=== PATIENT | male | born 1955 | race Caucasian/White ===

== ENCOUNTER 2022-04-13 14:32 | Emergency (ER) | payer MEDICARE ==
[~2022-04-13] VITALS: Ht 175.3 cm; Wt 81.0 kg
--- NOTE | ~2022-04-13 | EKG ---
[facility] [address] [facility], [place] [address] Draft EK completed, results pending confirmation PATIENT NAME: BENJAMINADÁNMILENA Electrocardiogram DATE OF : 55 PHYSICIAN: PRELIMINARY REPORT #: [id number] REPORT IS CONFIDENTIAL AND NOT TO BE RELEASED WITHOUT AUTHORIZATION
--- NOTE | ~2022-04-13 | EKG ---
[facility] [address] [facility] [place], [place] [address] Draft EK completed, results pending confirmation PATIENT NAME: EDUARDOSylviaMILENA Electrocardiogram DATE OF : 55 PHYSICIAN: PRELIMINARY REPORT #: [id number] REPORT IS CONFIDENTIAL AND NOT TO BE RELEASED WITHOUT AUTHORIZATION
[2022-04-13] MEDS ORDERED: ZESTRIL2.5 MG PO (16:26)
[2022-04-13] MEDS ORDERED: MESALAMINE PO (16:27)
[2022-04-13] MEDS ORDERED: OXYCODONE HCL5 MG PO (16:27)
[2022-04-13] MEDS ORDERED: METFORMIN HCL500 MG PO (16:28)
== END 2022-04-13 15:22 | disposition short-term general hospital (02) ==
LOC: ED 14:32
DX: I21.3 ST elevation (STEMI) myocardial infarction of unspecified site (principal); Z79.84 Long term (current) use of oral hypoglycemic drugs; Z79.899 Other long term (current) drug therapy
CPT/HCPCS: 36415; 71045; 80053; 81001; 83735; 84484; 85025; 85610; 85730; 93005; 93010; A9270; C9803; J1644; U0003